=== PATIENT | male | born 1955 | race Caucasian/White ===

== ENCOUNTER 2024-05-02 17:01 | Emergency (ER) | payer OTHER ==
[2024-05-02] MEDS ORDERED: ALBUTEROL 2.5 MG/3 ML NEB SOL ONE (17:43)
[2024-05-02] MEDS ORDERED: IPRATROPIUM BROM 0.5MG/2.5ML ONE (17:43)
[2024-05-02 18:04] LABS: SARS-CoV-2 Antigen CONTROL BLUE LINE VIS/BG OK; SARS-CoV-2 Antigen Rapid Res Negative (Negative)
--- NOTE | 2024-05-02 18:12 | RAD REPORT ---
EXAMINATION: TWO VIEW CHEST XR CLINICAL INDICATION: Male, 68 years old. [facility] MAIN Congestion;Cough Bed: TECHNIQUE: 2 view radiographs of the chest were performed. COMPARISON: No prior exam. FINDINGS: The lungs are well inflated and clear. No pneumothorax or sizable effusion. The heart is normal in si ze. Mediastinal contours are unremarkable. IMPRESSION: No acute or significant abnormalities.
--- NOTE | 2024-05-02 18:15 | ER ---
Nurse's Notes [facility] Name: Gabriel Paulino Age: 68 yrs Sex: Male : 1955 Arrival Date: 05/02/2024 Time: 17:01 Bed 11 Private MD: Diagnosis: Influenza due to identified novel influenza A virus Presentation: 05/02 17:13 Chief complaint: Patient states: Cough, shortness of breath, body aches and nausea cm10 onset 10 days ago. Coronavirus screen: Client denies travel out of the [place] in the last 14 days. Ebola Screen: Patient denies travel to an Ebola-affected area in the 21 days before illness onset. Initial Sepsis Screen: Does the patient meet any 2 criteria? No. Patient's initial sepsis screen is negative. Does the patient have a suspected source of infection? No. Patient's initial sepsis screen is negative. Risk Assessment: Do you want to hurt yourself or someone else? Patient reports no desire to harm self or others. Onset of symptoms was May 02, 2024. 17:13 Method Of Arrival: Ambulatory cm10 17:13 Acuity: ZULEYKA 4 cm10 Triage Assessment: 17:14 General: Appears in no apparent distress. uncomfortable, Behavior is calm, cooperative. cm10 Neuro: No deficits noted. Level of Consciousness is awake, alert, obeys commands, Oriented to person, place, time, situation, Appropriate for age. Historical: - Allergies: 17:14 No Known Allergies; cm10 - PMHx: 17:14 Asthma; Myocardial infarction; Cerebrovascular accident; cm10 - PSHx: 17:14 Cardiac Stents; cm10 - Immunization history:: Adult Immunizations unknown. - Infectious Disease History:: Denies. - Social history:: Smoking status: Patient reports the use of cigarette tobacco products, smokes one pack cigarettes per day. Screenin:30 [facility] ED Fall Risk Assessment (Adult) History of falling in the last 3 months, jb4 including since admission No falls in past 3 months (0 pts) Confusion or Disorientation No (0 pts) Intoxicated or Sedated No (0 pts) Impaired Gait No (0 pts) Mobility Assist Device Used No (0 pt) Altered Elimination No (0 pt) Score/Fall Risk Level 0 - 2 = Low Risk Oriented to surroundings, Maintained a safe environment. Abuse screen: Denies threats or abuse. Nutritional screening: No deficits noted. Tuberculosis screening: No symptoms or risk factors identified. Assessment: 18:30 Reassessment: Patient appears in no apparent distress at this time. Patient and/or jb4 family updated on plan of care and expected duration. Pain level reassessed. Patient is alert, oriented x 3, equal unlabored respirations, skin warm/dry/pink. Patient states feeling better. Patient states symptoms have improved. Vital Signs: 17:13 BP 112 / 74; Pulse 75; Resp 22; Temp 97(TE); Pulse Ox 97% on R/A; Weight 81.65 kg; cm10 Height 5 ft. 9 in. ; Pain 10/10; 18:30 BP 127 / 73; Pulse 76; Resp 20; Pulse Ox 96% on R/A; jb4 17:13 Body Mass Index 26.58 (81.65 kg, 175.26 cm) cm10 17:13 Pain Scale: Adult cm10 ED Course: 17:05 Patient arrived in ED. sj2 17:05 Liz Steele FNP-C is PHCP. kb 17:05 Philip Shah DO is Attending Physician. kb 17:14 Triage completed. cm10 17:14 Arm band placed on left wrist. Patient placed in an exam room, on a stretcher. cm10 18:06 Chest Pa And Lat (2 Views) XRAY In Process Unspecified. EDMS 18:30 Patient has correct armband on for positive identification. Bed in low position. Call jb4 light in reach. Side rails up X 1. Provided Education on: discharge instructions.. 18:30 No provider procedures requiring assistance completed. Patient did not have IV access jb4 during this emergency room visit. Administered Medications: 17:46 Drug: Albuterol Inhalation 2.5 mg Inhalation once Route: Inhalation; jb4 17:46 Drug: Ipratropium Inhalation Aerosol 0.5 mg Inhalation once Route: Inhalation; jb4 18:28 Drug: MethylPREDNISolone Sodium Succinate IM 125 mg IM once Route: IM; Site: right jb4 deltoid; 18:28 Follow up: Response: Medication administered at discharge. jb4 Medication: 18:30 VIS not applicable for this client. jb4 Outcome: 18:14 Discharge ordered by . kb 18:30 Discharged to home ambulatory, jb4 18:30 Condition: stable 18:30 Discharge instructions given to patient, Instructed on discharge instructions, follow up and referral plans. medication usage, Demonstrated understanding of instructions, follow-up care, medications, Prescriptions given X 1, 18:32 Patient left the ED. jb4 Signatures: Dispatcher [employer] EDMS Liz Steele, HEALTH ADVOCATEBrian TORRESP-Monty Sierra RN RN jb4 Maureen Cunningham RN RN cm10 Boni Borjas sj2 Corrections: (The following items were deleted from the chart) 18:30 18:30 Reassessment: Patient appears in no apparent distress at this time. Patient jb4 and/or family updated on plan of care and expected duration. Pain level reassessed. Patient is alert, oriented x 3, equal unlabored respirations, skin warm/dry/pink. jb4 18:31 18:30 BP 127 / 73; Pulse 76bpm; Resp 16bpm; Pulse Ox 96% RA; jb4 jb4
--- NOTE | 2024-05-02 18:15 | EDPHYS ---
Physician Documentation [facility] Name: Gabriel Paulino Age: 68 yrs Sex: Male : 1955 Arrival Date: 05/02/2024 Time: 17:01 Bed 11 Private MD: ED Physician Philip Sahh HPI: 05/02 17:09 This 68 yrs old Male presents to ER via Unassigned with complaints of Breathing kb Difficulty, Flu Symptoms. 17:09 Pt is a 68 year old male who presents for cough, congestion, shortness of breath, kb nausea, fever, bodyaches that started 2 days ago. Denies diarrhea, vomiting. Shortness of breath worse with exertion. 2 others in household have similar symptoms. Historical: - Allergies: 17:14 No Known Allergies; cm10 - PMHx: 17:14 Asthma; Myocardial infarction; Cerebrovascular accident; cm10 - PSHx: 17:14 Cardiac Stents; cm10 - Immunization history:: Adult Immunizations unknown. - Infectious Disease History:: Denies. - Social history:: Smoking status: Patient reports the use of cigarette tobacco products, smokes one pack cigarettes per day. ROS: 17:10 Constitutional: As per HPI kb Exam: 17:14 Constitutional: This is a well developed, well nourished patient who is awake, alert, kb and in no acute distress. Head/Face: Normocephalic, atraumatic. ENT: Moist Mucous membranes Cardiovascular: Regular rate Skin: Warm, dry with normal turgor. Normal color. MS/ Extremity: Pulses equal, no cyanosis. Neurovascular intact. Full, normal range of motion. Neuro: Awake and alert, GCS 15, oriented to person, place, time, and situation. 17:14 Respiratory: the patient does not display signs of respiratory distress, Respirations: labored breathing, that is mild, Breath sounds: wheezing: expiratory that is mild, is heard in the left posterior upper lobe and left posterior lower lobe, Vital Signs: 17:13 BP 112 / 74; Pulse 75; Resp 22; Temp 97(TE); Pulse Ox 97% on R/A; Weight 81.65 kg; cm10 Height 5 ft. 9 in. ; Pain 10/10; 18:30 BP 127 / 73; Pulse 76; Resp 20; Pulse Ox 96% on R/A; jb4 17:13 Body Mass Index 26.58 (81.65 kg, 175.26 cm) cm10 17:13 Pain Scale: Adult cm10 MDM: 17:06 Medical Screening Exam initiated kb 17:14 Data reviewed: vital signs, nurses notes. kb 18:13 Differential diagnosis: flu, covid, pneumonia, uri. Counseling: I had a detailed kb discussion with the patient and/or guardian regarding the historical points, exam findings, and any diagnostic results supporting the discharge/admit diagnosis, lab results, radiology results, the need for outpatient follow up, a family practitioner, to return to the emergency department if symptoms worsen or persist or if there are any questions or concerns that arise at home. 05/02 17:14 Order name: Flu; Complete Time: 18:07 kb 05/02 17:14 Order name: SARS-COV-2 Antigen Rapid; Complete Time: 18:07 kb 05/02 17:14 Order name: Chest Pa And Lat (2 Views) XRAY; Complete Time: 18:13 kb Administered Medications: 17:46 Drug: Albuterol Inhalation 2.5 mg Inhalation once Route: Inhalation; jb4 17:46 Drug: Ipratropium Inhalation Aerosol 0.5 mg Inhalation once Route: Inhalation; jb4 18:28 Drug: MethylPREDNISolone Sodium Succinate IM 125 mg IM once Route: IM; Site: right jb4 deltoid; 18:28 Follow up: Response: Medication administered at discharge. jb4 Disposition: 18:01 I was immediately available on-site in the Emergency Department for consultation in the ms3 care of the patient. Disposition Summary: 05/02/24 18:14 Discharge Ordered Notes: Location: Home kb Condition: Stable kb Diagnosis - Influenza due to identified novel influenza A virus kb Followup: kb - With: Emergency Department - When: As needed - Reason: Worsening of condition Followup: kb - With: Private Physician - When: 2 - 3 days - Reason: Recheck today's complaints, Continuance of care, Re-evaluation by your physician Discharge Instructions: - Discharge Summary Sheet kb - Influenza, Adult, [id number] kb Forms: - Medication Reconciliation Form kb - Antibiotic Education kb - Prescription Opioid Use kb - Patient Portal Instructions kb - Leadership Thank You Letter kb Prescriptions: - Prednisone 20 mg Oral Tablet - take 1 tablet ORAL route once daily for 5 days; 5 tablet; Refills: 0, Product kb Selection Permitted Signatures: Dispatcher [employer] EDMS Liz Steele, LARD MIXER-C LARD MIXER-CkMonty Vieira, RN RN jb4 Philip Shah DO DO ms3 Maureen Cunningham, RN RN cm10 Corrections: (The following items were deleted from the chart) 17:10 17:09 Pt is a 68 year old male who presents for cough, congestion, shortness of breath, kb nausea, fever, bodyaches that started 2 days ago. Denies diarrhea, vomiting. . kb 17:14 17:09 Pt is a 68 year old male who presents for cough, congestion, shortness of breath, kb nausea, fever, bodyaches that started 2 days ago. Denies diarrhea, vomiting. Shortness of breath worse with exertion. . kb
[2024-05-02] MEDS ORDERED: METHYLPREDNISOLONE 125 MG INJ ONE (18:19)
[2024-05-03 17:02] VITALS: BP 127/73; TEMP 97; O2SAT 96
== END 2024-05-02 18:32 | disposition home or self-care (01) ==
LOC: ER 17:01
DX: J10.1 Influenza due to other identified influenza virus with other respiratory manifestations (principal); Z11.52 Encounter for screening for COVID-19; F17.210 Nicotine dependence, cigarettes, uncomplicated; Z95.818 Presence of other cardiac implants and grafts
CPT/HCPCS: 36415; 87804 ×2; 71046; 96372; 99284; 87811; J7613; J7644; J2919